=== PATIENT | female | born 1980 | race American Indian/Alaskan Native ===

== ENCOUNTER 2016-03-15 21:23 | Outpatient (CLI) | payer MEDICAID ==
[2016-03-15] MEDS ORDERED: LACTATED RINGERS 500 ML IV ONE (21:36)
[2016-03-15 21:50] VITALS: BP 92/70
[2016-03-15] MEDS: BRETHINE SUB-Q SCH (23:00)
[2016-03-15] MEDS ORDERED: BRETHINE ONE (23:00)
[2016-03-15] MEDS ORDERED: LACTATED RINGERS 1,000 ML IV SCH (23:45)
[2016-03-16] MEDS: BRETHINE SUB-Q SCH (00:12)
--- NOTE | 2016-03-16 10:40 | Ultrasound Report ---
OB LIMITED History: Rupture of membranes. Technique: Transabdominal ultrasound with Doppler interrogation. Gestation: [place] Position: Breech Amniotic Fluid: Normal DERRICK = 14.3 cm Placenta: Posterior Placental Grade: 0 Heart Rate: 156 BPM Cervical length: Not visualized cm (Normal > 3 cm)
== END 2016-03-16 00:55 | disposition home or self-care (01) ==
LOC: TRG 21:23
PROVIDERS: ATTEND Obstetrics & Gynecology
DX: O42.912 Preterm premature rupture of membranes, unspecified as to length of time between rupture and onset of labor, second trimester (principal); O32.1XX0 Maternal care for breech presentation, not applicable or unspecified; O77.9 Labor and delivery complicated by fetal stress, unspecified; Z3A.24 24 weeks gestation of pregnancy
CPT/HCPCS: 36415; 59025; 76815; 82731; 96360; 96361; 96372; J3105; J7120

== ENCOUNTER 2016-05-29 10:15 | Outpatient (CLI) | payer MEDICAID ==
[2016-05-29 10:51] VITALS: BP 108/65
[2016-05-29] MEDS ORDERED: LACTATED RINGERS 1,000 ML IV ONE (11:28)
== END 2016-05-29 12:08 | disposition home or self-care (01) ==
LOC: TRG 10:15
PROVIDERS: ATTEND Obstetrics & Gynecology Gynecology
DX: O47.03 False labor before 37 completed weeks of gestation, third trimester (principal); Z3A.35 35 weeks gestation of pregnancy
CPT/HCPCS: 59025

== ENCOUNTER 2016-06-13 10:33 | Outpatient (CLI) | payer MEDICAID ==
[2016-06-13 10:58] VITALS: BP 103/66
== END 2016-06-13 12:30 | disposition home or self-care (01) ==
LOC: TRG 10:33
PROVIDERS: ATTEND Obstetrics & Gynecology Gynecology
DX: O47.1 False labor at or after 37 completed weeks of gestation (principal); Z3A.37 37 weeks gestation of pregnancy
CPT/HCPCS: 59025

== ENCOUNTER 2016-06-21 09:45 | Outpatient (CLI) | payer MEDICAID ==
[2016-06-21 10:01] VITALS: BP 113/72
--- NOTE | 2016-06-23 07:34 | Ultrasound Report ---
ULTRASOUND BIOPHYSICAL PROFILE: History: well being Technique: Transabdominal ultrasound with Doppler interrogation. 2 - breathing movements 2 - movements 2 - posture and tone 2 - Qualitative amniotic fluid volume 8 - TOTAL SCORE OF POSSIBLE 8 Heart Rate (bpm) 142
--- NOTE | 2016-06-23 07:35 | Ultrasound Report ---
ULTRASOUND OB LIMITED History: well being Technique: Transabdominal ultrasound with Doppler interrogation. Gestation: Single Position: Cephalic Amniotic Fluid: Normal DERRICK = 9.7 cm Heart Rate: 157 BPM
== END 2016-06-21 12:20 | disposition home or self-care (01) ==
LOC: TRG 09:45
PROVIDERS: ATTEND Obstetrics & Gynecology
DX: O47.1 False labor at or after 37 completed weeks of gestation (principal); Z3A.38 38 weeks gestation of pregnancy
CPT/HCPCS: 59025; 76815; 76819